=== PATIENT | male | born 1970 | race Two or more races ===

== ENCOUNTER 2019-04-15 14:20 | Emergency (ER) | payer OTHER ==
[~2019-04-15] VITALS: Ht 174 cm; Wt 115.8 kg
--- NOTE | 2019-04-15 15:43 | Diagnostic Imaging Report ---
Exam: Left hand 3 views History: Pain Comparison: None. Findings: No fracture or malalignment. First CMC joint degenerative arthrosis. No abnormal soft tissue calcification or soft tissue defect. Impression: No acute osseous abnormality Signed by: Dr. Otis Lino M.D. on 04/15/2019 3:39 PM
--- NOTE | 2019-04-15 16:00 | NUR ---
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
[2019-04-15] MEDS ORDERED: NAPROSYN500 MG PO (16:14)
[2019-04-15 18:57] VITALS: BP 127/89
[2019-04-15] MEDS ORDERED: IBUPROFEN400 MG PO (18:57)
[2019-04-15] MEDS ORDERED: OMEPRAZOLE40 MG (18:57)
== END 2019-04-15 16:37 | disposition home or self-care (01) ==
LOC: FSED 14:20
DX: S63.651A Sprain of metacarpophalangeal joint of left index finger, initial encounter (principal); X50.1XXA Overexertion from prolonged static or awkward postures, initial encounter; Y99.0 Civilian activity done for income or pay; F17.210 Nicotine dependence, cigarettes, uncomplicated
CPT/HCPCS: 99283